=== PATIENT | male | born 1945 | race Caucasian/White ===

== ENCOUNTER → 2017-02-22 | Outpatient (CLI) | payer MEDICARE ==
[~2017-02-22] MED LIST: ACTOS PO; ASPIRIN PO; ATENOLOL PO; CELEXA20 MG PO; CENTRUM PO; CRESTOR PO; DIOVAN PO; ESTER C PO; FISH OIL 1,0001 CAP PO; HYDROCHLOROTH12.5 MG PO; JANUVIA PO; LANSOPRAZOLE30 MG PO; NORVASC PO; TRICOR PO; TRILIPIX135 MG PO; ZETIA PO
--- NOTE | ~2017-02-22 | US77 ---
[facility] A Service of [facility] & [facility] RADIOLOGY TEXT RESULTS PATIENT: DAVID YBARRA LOCATION: [facility] : 47 UNIT #: [id number] AGE: [address]: Rajan Bradshaw MD SEX: M ORDER DR: [id number] [facility] [address]. [place], [place] [address] [id number] O MR#: [id number] Acc #: [id number] NAME: DAVID YBARRA : 1945 SEX: M STUDY DATE/TIME: 02/22/2017 12:20 UNIT: US ROOM: STUDY DESCRIPTION: US Kidney Bilateral Complete Attending Physician: Rajan Bradshaw M.D. Referring Physician: Rajan Bradshaw M.D. Ordering Physician: Rajan Bradshaw M.D. Primary Care Physician: Reynold Collado M.D. MEDICAL IMAGING REPORT This report is preliminary unless electronic signature is present EXAM Renal ultrasound, 02/22/2017. HISTORY Chronic kidney disease stage 3, diabetes type 2, and hypertension. FINDINGS The right kidney measures 12.2 cm, while the left kidney measures 13.1 cm in longitudinal dimensions. There is no evidence of hydronephrosis or nephrolithiasis. There is a 1.9 cm cyst on the right kidney. No solid mass lesions are identified. There is normal renal cortical echogenicity. Images of the bladder are normal. IMPRESSION 1. Right renal cyst. Otherwise negative renal ultrasound. 2. Images of the bladder are normal. Dictated by... Lenny Yeh M.D. THIS IS AN ELECTRONICALLY VERIFIED REPORT Lenny Yeh M.D. at 02/23/2017 8:03 AM HERIMNIA/vinod TD: 02/22/2017 16:15 JOB #: [id number] MEDICAL IMAGING REPORT Page 1 of 1 COPY
== END | disposition home or self-care (01) ==
LOC: CGUS 01-03 12:45
DX: N18.3 Chronic kidney disease, stage 3 (moderate) (principal); E11.9 Type 2 diabetes mellitus without complications; I10 Essential (primary) hypertension; N28.1 Cyst of kidney, acquired
CPT/HCPCS: 76770